=== PATIENT | male | born 1995 | race Caucasian/White ===

== ENCOUNTER 2017-12-03 18:47 | Emergency (ER) | payer SELFPAY ==
[2017-12-03] MEDS ORDERED: NS 1000 ML 1,000 ML ONE (18:53)
[2017-12-03 19:06] LABS: BASOPHILS # (AUTO) 0.1 X10^3/uL (0.0-0.1); BASOPHILS % (AUTO) 1.1 % (0.2-1.0); EOSINOPHILS # (AUTO) 0.1 x10^3/uL (0.0-0.2); EOSINOPHILS % (AUTO) 0.8 % (0.9-2.9); HEMATOCRIT 44.8 % (42.0-54.0); HEMOGLOBIN 15.3 g/dL (13.5-18.0); LYMPHOCYTES # (AUTO) 4.4 X10^3/uL (1.3-2.9); LYMPHOCYTES % (AUTO) 32.6 % (21.0-51.0); MEAN CORPUSCULAR HEMOGLOBIN 28.9 pg (27.0-34.0); MEAN CORPUSCULAR HGB CONC 34.3 g/dL (33.0-35.0); MEAN CORPUSCULAR VOLUME 84.5 fL (80.0-100.0); MEAN PLATELET VOLUME 8.9 fL (7.4-11.0); MONOCYTES # (AUTO) 1.1 x10^3/uL (0.3-0.8); MONOCYTES % (AUTO) 8.2 % (0.0-13.0); NEUTROPHILS # (AUTO) 7.8 x10^3/uL (2.2-4.8); NEUTROPHILS % (AUTO) 57.3 % (42.0-75.0); PLATELET COUNT 257 X10^3/uL (150.0-450.0); RED CELL DISTRIBUTION WIDTH 13.4 % (11.6-16.5); WHITE BLOOD COUNT 13.5 X10^3/uL (3.6-10.0)
[2017-12-03 19:15] LABS: ALANINE AMINOTRANSFERASE 46 Units/L (12-78); ALBUMIN 4.8 g/dL (3.4-5.0); ALKALINE PHOSPHATASE 71 Units/L (46-116); ASPARTATE AMINO TRANSFERASE 31 Units/L (15-37); BLOOD UREA NITROGEN 22 mg/dL (7-18); CALCIUM 9.1 mg/dL (8.5-10.1); CARBON DIOXIDE 25.2 mmol/L (21-32); CHLORIDE 104 mmol/L (98-107); COR NA(FOR HYPERGLY) 143 mmol/L (136-145); CREATININE 1.19 mg/dL (0.70-1.30); SODIUM 143 mmol/L (136-145); TOTAL PROTEIN 8.8 g/dL (6.4-8.2); eGFR BLACK RACES > 60 (>60); eGFR NON BLACK RACES > 60 (>60)
[2017-12-03 19:16] VITALS: BMI 27.1
[2017-12-03 19:29] LABS: SALICYLATE < 2.8 mg/dL (2.8-20)
[2017-12-03 21:52] LABS: BILIRUBIN,URINE NEGATIVE (NEGATIVE); BLOOD/HEMOGLOBIN,URINE NEGATIVE (NEGATIVE); GLUCOSE, URINE NEGATIVE (NEGATIVE); KETONES,URINE 1+ (NEGATIVE); LEUKOCYTE ESTERASE ,URINE 2+ (NEGATIVE); NITRITES,URINE NEGATIVE (NEGATIVE); PROTEIN,URINE 2+ (NEGATIVE); UROBILINOGEN,URINE 1+ (NORMAL)
[2017-12-03 22:06] LABS: APPEARANCE,URINE CLEAR (CLEAR); BACTERIA,URINE TRACE /HPF (NEGATIVE); COLOR,URINE YELLOW (YELLOW); MUCUS,URINE NUMEROUS /HPF (NEGATIVE); RBC,URINE NONE SEEN /HPF (NONE SEEN); SQUAMOUS EPITHELIAL CELL,UR RARE /HPF (NEGATIVE)
--- NOTE | 2017-12-04 01:16 | DR.GENAD ---
HPI - Complaint/Symptoms Chief Complaint Doctors Comments: Patient presented to the ED via EMS with complaint of possible ingestion of benadryl #24 50mg tablets. Patient states that he was trying to kill himselt. He reports that his girl friend was writing a letter to another man; the dad of the child. Patient got angry, did not think that she should be doing so; while they are living together. He states that he took the pills in an attempt to kill himself. He got angry he reports. Chief Complaint:: POSSIBLE OVERDOSE/PTS MOTHER STATES HE TOOK APPROX 25 DIPHENHYDRAMINE - Mode of Arrival Mode of Arrival: Wheelchair - Timing Onset of Chief Complaint: 12/03/17 PMH - PMH Past Medical History: Yes Past Medical History: Anxiety, Asthma Past Medical History Comment: HX OF SUICIDE Past Surgical History: No Surgical History: Appendectomy - Family History History of Family Medical Conditions: Yes Family Medical History: Coronary Artery Disease, Hypertension - Social History Does patient currently use any type of tobacco product: Yes Have you used tobacco products in the last 12 months: Yes Type of Tobacco Use: Cigarettes Do you use any recreational Drugs:: No Lives With: Family Lives Where: Home - infectious screening In the last 2 months have you had wt loss of >10#?: NO Have you had fever, night sweats or hemotysis?: No Have you traveled outside the country in the last 6 months?: No Isolation: Standard ROS - Review of Systems Eyes: No Symptoms Reported ENTM: No Symptoms Reported Respiratoy: No Symptoms Reported Cardiovascular: No Symptoms Reported Gastrointestinal/Abdominal: No Symptoms Reported Genitourinary: No Symptoms Reported Neurological: No Symptoms Reported Musculoskeletal: No Symptoms Reported Integumentary: No Symptoms Reported Hematologic/Lymphatic: No Symptoms Reported Endocrine: No Symptoms Reported Psychiatric: No Symptoms Reported All Other Systems: Reviewed and Negative PE - Vital Signs Vitals: Temperature 99.1 F Pulse Rate [Left Brachial] 93 Respiratory Rate 22 Blood Pressure [Right Arm] 125/71 Blood Pressure [Left Arm] 128/83 Blood Pressure 124/69 O2 Sat by Pulse Oximetry 97 - General Limitations: Language Barrier General Appearance: Alert, In No Apparent Distress - Head Head Exam: Normal Inspection, Atraumatic - Eyes Eye exam: Normal Appearance, PERRL, EOMI - ENT ENT Exam: Normal Exam External Ear Exam: Normal External Inspection TM/Canal Exam: Bilateral Normal Nose Exam: Normal Nose Exam Mouth Exam: Normal Inspection Throat Exam: Normal Inspection - Neck Neck Exam: Normal Inspection - Chest Chest Inspection: Normal Inspection, Symmetric Chest Wall Rise - Respiratory Respiratory Exam: Normal Lung Sounds Bilat Respiratory Exam: Bilateral Clear to Auscultation - Cardiovascular Cardiovascular Exam: Regular Rate, Normal Rhythm - Abdominal Exam Abdominal Exam: Normal Inspection, Normal Bowel Sounds Abdominal Tenderness: negative: RUQ, RLQ, LUQ, LLQ, Epigastrium, Suprapubic, Diffuse, Mild, Moderate, Severe, Other - Extremities Extremities Exam: Normal Inspection, Full ROM - Back Back Exam: Normal Inspection, Full ROM - Neurologic Neurological Exam: Alert, Oriented X3, CN II-XII Intact - Psychiatric Psychiatric Exam: Anxious - Skin Skin Exam: Warm, Dry, Intact Course - Reevaluation 1st: Improved ROR - Labs Reviewed Laboratory Results Reviewed?: Yes (low potassium) Result Diagrams: 12/03/17 18:57 12/03/17 18:57 Laboratory: WBC 13.5 X10^3/uL (3.6-10.0) H 12/03/17 18:57 RBC 5.30 X10^6/uL (4.7-6.0) 18 18:57 Hgb 15.3 g/dL (13.5-18.0) 18 18:57 Hct 44.8 % (42.0-54.0) 18 18:57 MCV 84.5 fL (80.0-100.0) 18 18:57 MCH 28.9 pg (27.0-34.0) 18 18:57 MCHC 34.3 g/dL (33.0-35.0) 18 18:57 RDW 13.4 % (11.6-16.5) 18 18:57 Plt Count 257 X10^3/uL (150.0-450.0) 18 18:57 MPV 8.9 fL (7.4-11.0) 18 18:57 Neut % (Auto) 57.3 % (42.0-75.0) 12/03/17 18:57 Lymph % (Auto) 32.6 % (21.0-51.0) 12/03/17 18:57 [place] % (Auto) 8.2 % (0.0-13.0) 12/03/17 18:57 Eos % (Auto) 0.8 % (0.9-2.9) L 12/03/17 18:57 Baso % (Auto) 1.1 % (0.2-1.0) H 12/03/17 18:57 Neut # (Auto) 7.8 x10^3/uL (2.2-4.8) H 12/03/17 18:57 Lymph # (Auto) 4.4 X10^3/uL (1.3-2.9) H 12/03/17 18:57 [place] # (Auto) 1.1 x10^3/uL (0.3-0.8) H 12/03/17 18:57 Eos # (Auto) 0.1 x10^3/uL (0.0-0.2) 12/03/17 18:57 Baso # (Auto) 0.1 X10^3/uL (0.0-0.1) 12/03/17 18:57 Absolute Nucleated RBC 0.0 /100WBC 12/03/17 18:57 Sodium 143 mmol/L (136-145) 12/03/17 18:57 Corrected Sodium 143 mmol/L (136-145) 12/03/17 18:57 Potassium 3.2 mmol/L (3.5-5.1) L 12/03/17 18:57 Chloride 104 mmol/L (98-107) 12/03/17 18:57 Carbon Dioxide 25.2 mmol/L (21-32) 12/03/17 18:57 BUN 22 mg/dL (7-18) H 12/03/17 18:57 Creatinine 1.19 mg/dL (0.70-1.30) 12/03/17 18:57 Est GFR (MDRD) Af Amer > 60 (>60) 12/03/17 18:57 Est GFR (MDRD) Non-Af > 60 (>60) 12/03/17 18:57 Glucose 111 mg/dL (65-99) H 12/03/17 18:57 Calcium 9.1 mg/dL (8.5-10.1) 12/03/17 18:57 Corrected Calcium TNP 03/17/18 18:57 Total Bilirubin 0.90 mg/dL (0.2-1.0) 18 18:57 AST 31 Units/L (15-37) 18 18:57 ALT 46 Units/L (12-78) 18 18:57 Alkaline Phosphatase 71 Units/L (46-116) 12/03/17 18:57 Total Protein 8.8 g/dL (6.4-8.2) H 12/03/17 18:57 Albumin 4.8 g/dL (3.4-5.0) 12/03/17 18:57 Globulin 4.0 g/dL (2.5-4.5) 12/03/17 18:57 Albumin/Globulin Ratio 1.2 Ratio (1.1-2.1) 12/03/17 18:57 Specimen Type Catherized urine 12/03/17 21:20 Urine Color Yellow (YELLOW) 12/03/17 21:20 Urine Appearance Clear (CLEAR) 12/03/17 21:20 Urine pH 6.0 (5.0 - 8.0) 12/03/17 21:20 Ur Specific [place] 1.025 (1.000-1.030) 12/03/17 21:20 Urine Protein 2+ (NEGATIVE) 12/03/17 21:20 Urine Glucose (UA) Negative (NEGATIVE) 12/03/17 21:20 Urine Ketones 1+ (NEGATIVE) 12/03/17 21:20 Urine Occult Blood Negative (NEGATIVE) 12/03/17 21:20 Urine Nitrite Negative (NEGATIVE) 12/03/17 21:20 Urine Bilirubin Negative (NEGATIVE) 12/03/17 21:20 Urine Urobilinogen 1+ (NORMAL) 12/03/17 21:20 Ur Leukocyte Esterase 2+ (NEGATIVE) 12/03/17 21:20 Urine RBC None seen /HPF (NONE SEEN) 12/03/17 21:20 Urine WBC 12-16 /HPF (NONE SEEN) 12/03/17 21:20 Ur Squamous Epith Cells Rare /HPF (NEGATIVE) 12/03/17 21:20 Urine Bacteria Trace /HPF (NEGATIVE) 12/03/17 21:20 Urine Mucus Numerous /HPF (NEGATIVE) 12/03/17 21:20 Ur Culture Indicated? Yes/culture set up 12/03/17 21:20 Salicylates < 2.8 mg/dL (2.8-20) L 12/03/17 18:57 Urine Opiates Screen Negative (NEG=<300) 12/03/17 21:20 Urine Methadone Screen Negative (NEG=<300) 12/03/17 21:20 Acetaminophen < 10.0 ug/mL (10-30) L 12/03/17 18:57 Ur Barbiturates Screen Negative (NEG=<200) 12/03/17 21:20 Ur Phencyclidine Scrn Negative (NEG=<25) 12/03/17 21:20 Ur Amphetamines Screen Negative (NEG=<1000) 12/03/17 21:20 U Benzodiazepines Scrn Negative (NEG=<200) 12/03/17 21:20 Urine Cocaine Screen Negative (NEG=<300) 12/03/17 21:20 U Marijuana (THC) Screen Positive (NEG=<50) A 12/03/17 21:20 - Diagnosis Discharge Problem: Suicidal thoughts - Discharge Plan Condition: Stable - Follow ups/Referrals Follow ups/Referrals: NFD,None [Primary Care Provider] - 3 days - Instructions
[2017-12-04] MEDS ORDERED: K-LYTE EFFERVESCENT PO ONE (01:19)
[2017-12-04] MEDS ORDERED: K-LYTE EFFERVESCENT ONE (04:20)
[2017-12-04 08:39] LABS: BASOPHILS # (AUTO) 0.1 X10^3/uL (0.0-0.1); BASOPHILS % (AUTO) 0.6 % (0.2-1.0); EOSINOPHILS % (AUTO) 0.3 % (0.9-2.9); HEMATOCRIT 43.3 % (42.0-54.0); HEMOGLOBIN 14.7 g/dL (13.5-18.0); LYMPHOCYTES # (AUTO) 1.7 X10^3/uL (1.3-2.9); LYMPHOCYTES % (AUTO) 14.7 % (21.0-51.0); MEAN CORPUSCULAR HEMOGLOBIN 28.8 pg (27.0-34.0); MEAN CORPUSCULAR VOLUME 84.7 fL (80.0-100.0); MEAN PLATELET VOLUME 8.7 fL (7.4-11.0); MONOCYTES # (AUTO) 0.8 x10^3/uL (0.3-0.8); MONOCYTES % (AUTO) 7.5 % (0.0-13.0); NEUTROPHILS # (AUTO) 8.7 x10^3/uL (2.2-4.8); NEUTROPHILS % (AUTO) 76.9 % (42.0-75.0); PLATELET COUNT 200 X10^3/uL (150.0-450.0); RED BLOOD COUNT 5.11 X10^6/uL (4.7-6.0); RED CELL DISTRIBUTION WIDTH 13.6 % (11.6-16.5); WHITE BLOOD COUNT 11.3 X10^3/uL (3.6-10.0)
[2017-12-04 08:46] LABS: BLOOD UREA NITROGEN 16 mg/dL (7-18); CALCIUM 8.5 mg/dL (8.5-10.1); CHLORIDE 105 mmol/L (98-107); CREATININE 1.03 mg/dL (0.70-1.30); SODIUM 140 mmol/L (136-145); eGFR BLACK RACES > 60 (>60); eGFR NON BLACK RACES > 60 (>60)
[2017-12-04 10:17] VITALS: BP 131/67
== END 2017-12-04 11:25 ==
LOC: ER 18:55
DX: R45.851 Suicidal ideations (principal); R94.31 Abnormal electrocardiogram [ECG] [EKG]; Z91.5 Personal history of self-harm
CPT/HCPCS: 36415; 51701; 80048; 80053; 80307; 81001; 83735; 85025; 87086; 93005; 93010; 96365; 99283; 99285; G0434; G6038; G6039